=== PATIENT | male | born 1995 | race Caucasian/White ===

== ENCOUNTER 2018-06-26 22:47 | Observation (INO) | payer OTHER ==
[2018-06-26] MEDS ORDERED: HYDROMORPHONE HCL INJ/PF 2 MG/ML AMPULE IV ONE ×2 (23:12→23:56)
[2018-06-26] MEDS ORDERED: NORMAL SALINE 1000 ML 1,000 ML IV ONE (23:12)
[2018-06-26] MEDS ORDERED: ONDANSETRON HCL INJ/PF 4 MG/2 ML SDV IV ONE (23:12)
--- NOTE | 2018-06-26 23:17 | ER Document Report ---
ED General - General Chief Complaint: Abdominal Pain Stated Complaint: ABDOMINAL PAIN Time Seen by Provider: 06/26/18 23:05 Notes: Patient is a 22-year-old male presents with complaint of abdominal pain. Patient says it started approximately now one half ago. He had eaten several hours before. He said vomiting. Pain is in the central portion of his abdomen just above his umbilicus. He says this is where most pain is but it does radiate throughout his abdomen. He did have a umbilical hernia repair approximately 2-3 months ago. This was performed at [facility]. No blood in his emesis. No blood in the stool. No other complaints at this time. TRAVEL OUTSIDE OF THE [place] IN LAST 30 DAYS: No - Related Data Allergies/Adverse Reactions: No Known Allergies Allergy (Unverified 06/26/18 22:54) Past Medical History - Social History Smoking Status: Never Smoker Frequency of alcohol use: Occasional Drug Abuse: None Family History: Reviewed & Not Pertinent Patient has suicidal ideation: No Patient has homicidal ideation: No Renal/ Medical History: Denies: Hx Peritoneal Dialysis Past Surgical History: Reports: Hx Abdominal Surgery - hernia repair Review of Systems - Review of Systems Notes: My Normal Review Basic REVIEW OF SYSTEMS: CONSTITUTIONAL : Denies fever, chills, or sweats. Denies recent illness. EENT: Denies eye, ear, throat, or mouth pain or symptoms. Denies nasal or sinus congestion. RESPIRATORY: Denies cough, cold, or chest congestion. Denies shortness of breath, difficulty breathing, or wheezing. GASTROINTESTINAL: Severe abdominal pain MUSCULOSKELETAL: Denies neck or back pain or joint pain or swelling. SKIN: Denies rash or skin lesions. NEUROLOGICAL: Denies altered mental status or loss of consciousness. Denies headache. Denies weakness or paralysis or loss of use of either side. Denies problems with gait or speech. Denies sensory or motor loss. ALL OTHER SYSTEMS REVIEWED AND NEGATIVE. Physical Exam - Vital signs Vitals: Temp Pulse Resp BP Pulse Ox 97.6 F 71 18 141/90 H 100 06/26/18 22:51 06/26/18 22:51 06/26/18 22:51 06/26/18 22:51 06/26/18 22:51 - Notes Notes: General Appearance: Well nourished, alert, cooperative, no acute distress, severe obvious discomfort. Vitals: reviewed, See vital signs table. Eyes: PERRL, EOMI, Conjuctiva clear Neck: Supple, no neck tenderness, No thyromegaly Lungs: No wheezing, No rales, No rhonci, No accessory muscle use, good air exchange bilaterally. Heart: Normal rate, Regular rythm, No murmur, no rub Abdomen: Normal BS, soft, No rigidity, patient has pain throughout the abdomen to palpation. It is worse over the correct ventral portion of the abdomen. I cannot feel a hernia on deep palpation of the abdomen. Patient does have a significant amount of guarding. Extremities: strength 5/5 in all extremities, good pulses in all extremities, no swelling or tenderness in the extremities, no edema. Skin: warm, dry, appropriate color, no rash Neuro: speech clear, oriented x 3, normal affect, responds appropriately to questions. Course - Re-evaluation Re-evalutation: 06/26/18 23:17 I am concerned the patient just recently had a hernia repair surgery. Concerned that he could have recurrence of the hernia with incarceration however I cannot confirm this on my exam as I cannot feel hernia currently. I will have the patient go directly to CT scan. Of ordered a CT scan with IV contrast. I have ordered pain medicine this patient has a lot of pain. 06/26/18 23:59 On reevaluation patient is still having a lot of pain despite the pain medicine. CT scan was done immediately and did not show any acute findings except for appendicolith but they did not see evidence of appendicitis otherwise. Patient has a white count of 20,000. He still in a lot of pain. Of ordered more pain medicine. I will call the surgeon to have him come evaluate the patient. 06/27/18 00:41 Dr. Casas, general surgeon, did evaluate the patient. He has evaluated the patient, reviewed labs, and reviewed his CT scan. He says it is unclear exactly what is causing patient's all pain at this time. He says he does not feel that he needs to go to the OR acutely. He recommends patient be admitted for observation and they can do repeat serial exams. He recommends patient be admitted to medicine and they would follow along and monitor the patient's abdomen as well. I will contact the hospitalist to see if they are in agreement with admitting the patient. Dictation of this chart was performed using voice recognition software; therefore, there may be some unintended grammatical errors. 06/27/18 01:12 I spoke with the hospitalist, Dr. Reyes, who feels that the patient has no medical problems and therefore there is no reason for this patient to be in the medical service. I did call back Dr. Casas who agrees to admit the patient. - Vital Signs Vital signs: Temp Pulse Resp BP Pulse Ox 97.6 F 71 18 141/90 H 100 06/26/18 22:51 06/26/18 22:51 06/26/18 22:51 06/26/18 22:51 06/26/18 22:51 - Laboratory Result Diagrams: 06/26/18 23:00 06/26/18 23:00 Laboratory results interpreted by me: 06/26/18 06/26/18 06/26/18 23:00 23:00 23:55 WBC 20.6 H Abs Neuts (Manual) 15.7 H Glucose 128 H Calcium 10.4 H Albumin 5.2 H Urine Ketones TRACE H Discharge - Discharge Clinical Impression: Abdominal pain Qualifiers: Abdominal location: unspecified location Qualified Code(s): R10.9 - Unspecified abdominal pain Leukocytosis Qualifiers: Leukocytosis type: unspecified Qualified Code(s): D72.829 - Elevated white blood cell count, unspecified Vomiting Qualifiers: Vomiting type: unspecified Vomiting Intractability: unspecified Nausea presence: with nausea Qualified Code(s): R11.2 - Nausea with vomiting, unspecified Condition: Stable Disposition: ADMITTED OBSERVATION Admitting Provider: Surgicalist Unit Admitted: Surgical Floor
[2018-06-26 23:26] LABS: HEMATOCRIT 46.1 % (37.9-51.0); MEAN CORPUSCULAR HEMOGLOBIN 30.3 pg (27.0-33.4); MEAN CORPUSCULAR HGB CONC 34.6 g/dL (32.0-36.0); MEAN CORPUSCULAR VOLUME 88 fl (80-97); PLATELET COUNT 346 10^3/uL (150-450); RED BLOOD COUNT 5.27 10^6/uL (4.35-5.55); RED CELL DISTRIBUTION WIDTH 12.8 % (11.5-14.0); WHITE BLOOD COUNT 20.6 10^3/uL (4.0-10.5)
[2018-06-26 23:36] LABS: ALANINE AMINOTRANSFERASE 46 U/L (21-72); ALBUMIN 5.2 g/dL (3.5-5.0); ALKALINE PHOSPHATASE 83 U/L (38-126); ANION GAP 13 (5-19); ASPARTATE AMINO TRANSFERASE 25 U/L (17-59); BILIRUBIN,DIRECT 0.2 mg/dL (0.0-0.4); BILIRUBIN,TOTAL 0.4 mg/dL (0.2-1.3); BLOOD UREA NITROGEN 19 mg/dL (7-20); CALCIUM 10.4 mg/dL (8.4-10.2); CARBON DIOXIDE 29 mmol/L (22-30); CHLORIDE 99 mmol/L (98-107); GLUCOSE 128 mg/dL (75-110); LIPASE 47.8 U/L (23-300); POTASSIUM 4.5 mmol/L (3.6-5.0); SODIUM 140.8 mmol/L (137-145); TOTAL PROTEIN 8.1 g/dL (6.3-8.2)
[2018-06-26 23:39] LABS: ABSOLUTE LYMPHOCYTES# (MANUAL) 3.1 10^3/uL (0.5-4.7); ABSOLUTE MONOCYTES # (MANUAL) 1.4 10^3/uL (0.1-1.4); ABSOLUTE NEUTROPHILS# (MANUAL) 15.7 10^3/uL (1.7-8.2); BASOPHILS % (MANUAL) 0 % (0-2); EOSINOPHILS % (MANUAL) 2 % (0-6); LYMPHOCYTES % (MANUAL) 15 % (13-45); MONOCYTES % (MANUAL) 7 % (3-13); SEGMENTED NEUTROPHILS % (MAN) 76 % (42-78); TOTAL CELLS COUNTED 100
[2018-06-26 23:42] LABS: PLATELET COMMENT ADEQUATE; PLATELET LARGE PRESENT; SCHISTOCYTES SLIGHT
--- NOTE | 2018-06-26 23:51 | RADIOLOGY REPORT (SQ) ---
EXAM DESCRIPTION: CT ABDOMEN PELVIS WITH IV CONTRAST COMPLETED DATE/TME: 06/26/2018 23:12 CLINICAL HISTORY: 22 years, Male, abdominal pain COMPARISON: None. TECHNIQUE: 431 Images stored on PACS. All CT scanners at this facility use dose modulation, iterative reconstruction, and/or weight based dosing when appropriate to reduce radiation dose to as low as reasonably achievable (ALARA). [facility]: Dose Right [facility]: CareDose [facility]: Dose Right [facility]: Teradose 4D [facility]: [employer] LIMITATIONS: None. FINDINGS: Limited evaluation of the lung bases is unremarkable. Osseous structures are grossly intact. The liver, spleen, adrenal glands, pancreas, kidneys are unremarkable. The gallbladder is present. No gross evidence for bowel obstruction. Fat-containing periumbilical hernia. Appendicoliths are noted, however the appendix is otherwise unremarkable. No free air or free fluid. IMPRESSION: Negative for acute intra-abdominal/pelvic process. TECHNICAL DOCUMENTATION: Quality ID # 436: Final reports with documentation of one or more dose reduction techniques (e.g., Automated exposure control, adjustment of the mA and/or kV according to patient size, use of iterative reconstruction technique) copyright 2010 [employer]- All Rights Reserved
[2018-06-27 00:03] LABS: APPEARANCE,URINE CLEAR; BILIRUBIN,URINE NEGATIVE (NEGATIVE); COLOR,URINE YELLOW; GLUCOSE, URINE NEGATIVE (NEGATIVE); KETONES,URINE TRACE mg/dL (NEGATIVE); LEUKOCYTE ESTERASE,URINE NEGATIVE (NEGATIVE); NITRITE,URINE NEGATIVE (NEGATIVE); PROTEIN,URINE NEGATIVE (NEGATIVE); URINE SPECIFIC GRAVITY 1.046; UROBILINOGEN,URINE NEGATIVE mg/dL (<2.0)
[2018-06-27] MEDS ORDERED: NORMAL SALINE 1000 ML 1,000 ML IV ONE ×2 (01:13)
--- NOTE | 2018-06-27 01:54 | PDOC H&P ---
History of Present Illness Admission Date/PCP: GERHARD LEON MD Patient complains of: abdominal pains History of Present Illness: BASILIA OLIVA is a 22 year old male with history of PTSD, suddenly c/o severe epigastric jason associated with prolonged vomiting( 30 minutes) at 9 pm 06/26/18. He did complain also of chilly sensation. Had umbilical hernia repair done at [facility] in . His WBC is 20.6. Past Medical History Psychiatric Medical History: Reports: Other - PTSD and nightmares Past Surgical History Past Surgical History: Reports: Other - umbilical hernia repair. Moles removed from left arm and underneath chin Social History Smoking Status: Current Some Day Smoker - uses "Vape" Frequency of Alcohol Use: Social Family History Family History: Reviewed & Not Pertinent Parental Family History Reviewed: Yes - Cancer Children Family History Reviewed: No Sibling(s) Family History Reviewed.: No Medication/Allergy Home Medications: Citalopram Hydrobromide [Celexa 20 mg Tablet] 20 mg PO DAILY 06/26/18 Prazosin HCl [Minipress] 2 mg PO QHS 06/26/18 Allergies/Adverse Reactions: No Known Allergies Allergy (Unverified 06/26/18 22:54) Review of Systems Constitutional: PRESENT: chills - chilly sensation Eyes: PRESENT: other - no visual/hearing changes Cardiovascular: PRESENT: other - no chest pains/cough Gastrointestinal: PRESENT: abdominal pain, vomiting Psychiatric: PRESENT: anxiety Hematologic/Lymphatic: PRESENT: other - no easy bruising Physical Exam Vital Signs: Temp Pulse Resp BP Pulse Ox 97.6 F 71 18 141/90 H 100 06/26/18 22:51 06/26/18 22:51 06/26/18 22:51 06/26/18 22:51 06/26/18 22:51 Intake & Output 06/25/18 06/26/18 06/27/18 06:59 06:59 06:59 Intake Total 1000 Balance 1000 Weight 92.5 kg General appearance: PRESENT: severe distress Head exam: PRESENT: atraumatic Eye exam: PRESENT: conjunctiva pink Mouth exam: PRESENT: moist Neck exam: PRESENT: full ROM Respiratory exam: PRESENT: clear to auscultation gilda Cardiovascular exam: PRESENT: RRR Pulses: PRESENT: normal radial pulses Vascular exam: PRESENT: normal capillary refill GI/Abdominal exam: PRESENT: tenderness - epigastric area rest of abdomen non tender Rectal exam: PRESENT: deferred Extremities exam: PRESENT: full ROM Musculoskeletal exam: PRESENT: ambulatory Neurological exam: PRESENT: alert, oriented to person, oriented to place, oriented to time, oriented to situation Psychiatric exam: PRESENT: anxious Skin exam: PRESENT: normal color, warm Results Laboratory Results: 06/26/18 23:00 06/26/18 23:00 06/26/18 06/26/18 06/26/18 23:00 23:00 23:50 WBC 20.6 H RBC 5.27 Hgb 16.0 Hct 46.1 MCV 88 MCH 30.3 MCHC 34.6 RDW 12.8 Plt Count 346 Seg Neutrophils % Not Reportable Lymphocytes % Not Reportable Monocytes % Not Reportable Eosinophils % Not Reportable Basophils % Not Reportable Absolute Neutrophils Not Reportable Absolute Lymphocytes Not Reportable Absolute Monocytes Not Reportable Absolute Eosinophils Not Reportable Absolute Basophils Not Reportable Sodium 140.8 Potassium 4.5 Chloride 99 Carbon Dioxide 29 Anion Gap 13 BUN 19 Creatinine 0.91 Est GFR ( Amer) > 60 Est GFR (Non-Af Amer) > 60 Glucose 128 H Lactic Acid 1.9 Calcium 10.4 H Total Bilirubin 0.4 AST 25 ALT 46 Alkaline Phosphatase 83 Total Protein 8.1 Albumin 5.2 H Lipase 47.8 Urine Color Urine Appearance Urine pH Ur Specific Stedman Urine Protein Urine Glucose (UA) Urine Ketones Urine Blood Urine Nitrite Ur Leukocyte Esterase Urine WBC (Auto) Urine RBC (Auto) 06/26/18 23:55 WBC RBC Hgb Hct MCV MCH MCHC RDW Plt Count Seg Neutrophils % Lymphocytes % Monocytes % Eosinophils % Basophils % Absolute Neutrophils Absolute Lymphocytes Absolute Monocytes Absolute Eosinophils Absolute Basophils Sodium Potassium Chloride Carbon Dioxide Anion Gap BUN Creatinine Est GFR ( Amer) Est GFR (Non-Af Amer) Glucose Lactic Acid Calcium Total Bilirubin AST ALT Alkaline Phosphatase Total Protein Albumin Lipase Urine Color YELLOW Urine Appearance CLEAR Urine pH 6.0 Ur Specific Stedman 1.046 Urine Protein NEGATIVE Urine Glucose (UA) NEGATIVE Urine Ketones TRACE H Urine Blood NEGATIVE Urine Nitrite NEGATIVE Ur Leukocyte Esterase NEGATIVE Urine WBC (Auto) 0 Urine RBC (Auto) 0 Impressions: Abdomen/Pelvis CT 06/26/18 23:12 IMPRESSION: Negative for acute intra-abdominal/pelvic process. TECHNICAL DOCUMENTATION: Quality ID # 436: Final reports with documentation of one or more dose reduction techniques (e.g., Automated exposure control, adjustment of the mA and/or kV according to patient size, use of iterative reconstruction technique) copyright 2011 [employer]- All Rights Reserved Assessment & Plan - Diagnosis (1) Abdominal pain Qualifiers: Abdominal location: unspecified location Qualified Code(s): R10.9 - Un specified abdominal pain Is this a current diagnosis for this admission?: Yes (2) Leukocytosis Qualifiers: Leukocytosis type: unspecified Qualified Code(s): D72.829 - Elevated white blood cell count, unspecified Is this a current diagnosis for this admission?: Yes (3) Vomiting Qualifiers: Vomiting type: unspecified Vomiting Intractability: unspecified Nausea presence: with nausea Qualified Code(s): R11.2 - Nausea with vomiting, unspecified - Time Time Spent: 30 to 50 Minutes - Inpatient Certification Medical Necessity: Need Close Monitoring Due to Risk of Patient Decompensation, Need For IV Fluids, Need for Pain Control, Risk of Complication if Not Cared For in Hospital - Plan Summary Plan Summary: Hold off antibiotics. Obtain blood c/s Re-evaluate in am with repeat CBC with diff Hydrate Add toradol for pain
[2018-06-27] MEDS ORDERED: HYDROMORPHONE HCL INJ/PF 2 MG/ML AMPULE IV PRN ×2 (02:01→10:39)
[2018-06-27 03:54] LABS: URINE AMPHETAMINES SCREEN NEGATIVE; URINE BARBITURATES SCREEN NEGATIVE; URINE BENZODIAZEPINES SCREEN NEGATIVE; URINE COCAINE SCREEN UNCONFIRMED POSITIVE; URINE MARIJUANA (THC) SCREEN NEGATIVE; URINE METHADONE SCREEN NEGATIVE; URINE PHENCYCLIDINE SCREEN NEGATIVE
--- NOTE | 2018-06-27 03:55 | RADIOLOGY REPORT (SQ) ---
EXAM DESCRIPTION: US ABDOMEN COMPLETED DATE/TME: 06/27/2018 00:00 CLINICAL HISTORY: 22 years, Male, gall bladder/pancreas path COMPARISON: CT from today's date TECHNIQUE: Complete transabdominal ultrasound LIMITATIONS: None. FINDINGS: The liver is homogenous in echotexture without focal lesion. No gallstones or gallbladder wall thickening. CBD measures 2.3 mm. Visualized pancreas is unremarkable. Visualized abdominal aorta and inferior vena cava are unremarkable. Right kidney maximal diameter 10 cm, the left 11 cm. No renal calculus, mass, or hydronephrosis. The spleen is unremarkable. No ascites. IMPRESSION: Unremarkable complete transabdominal ultrasound copyright 2010 [employer]- All Rights Reserved
[2018-06-27 05:43] LABS: HEMATOCRIT 44.5 % (37.9-51.0); HEMOGLOBIN 15.3 g/dL (13.5-17.0); MEAN CORPUSCULAR HEMOGLOBIN 30.4 pg (27.0-33.4); MEAN CORPUSCULAR HGB CONC 34.3 g/dL (32.0-36.0); MEAN CORPUSCULAR VOLUME 89 fl (80-97); PLATELET COUNT 324 10^3/uL (150-450); RED BLOOD COUNT 5.01 10^6/uL (4.35-5.55); RED CELL DISTRIBUTION WIDTH 12.9 % (11.5-14.0); WHITE BLOOD COUNT 23.3 10^3/uL (4.0-10.5)
[2018-06-27] MEDS: KETOROLAC TROMETHAMINE INJ/PF 30 MG/1 ML SDV IV SCH ×2 (06:11→12:10)
[2018-06-27 06:20] LABS: ALANINE AMINOTRANSFERASE 40 U/L (21-72); ALBUMIN 4.8 g/dL (3.5-5.0); ALKALINE PHOSPHATASE 76 U/L (38-126); ANION GAP 12 (5-19); ASPARTATE AMINO TRANSFERASE 21 U/L (17-59); BILIRUBIN,DIRECT 0.3 mg/dL (0.0-0.4); BILIRUBIN,TOTAL 0.8 mg/dL (0.2-1.3); BLOOD UREA NITROGEN 16 mg/dL (7-20); CALCIUM 9.7 mg/dL (8.4-10.2); CARBON DIOXIDE 28 mmol/L (22-30); CHLORIDE 100 mmol/L (98-107); GLUCOSE 132 mg/dL (75-110); LIPASE 37.1 U/L (23-300); POTASSIUM 4.5 mmol/L (3.6-5.0); SODIUM 139.9 mmol/L (137-145); TOTAL PROTEIN 7.5 g/dL (6.3-8.2)
[2018-06-27] MEDS: NORMAL SALINE 1000 ML 1,000 ML IV SCH ×2 (06:23→12:10)
[2018-06-27 06:31] LABS: ABSOLUTE LYMPHOCYTES# (MANUAL) 0.7 10^3/uL (0.5-4.7); ABSOLUTE MONOCYTES # (MANUAL) 0.7 10^3/uL (0.1-1.4); ABSOLUTE NEUTROPHILS# (MANUAL) 21.9 10^3/uL (1.7-8.2); BASOPHILS % (MANUAL) 0 % (0-2); EOSINOPHILS % (MANUAL) 0 % (0-6); LYMPHOCYTES % (MANUAL) 3 % (13-45); MONOCYTES % (MANUAL) 3 % (3-13); SEGMENTED NEUTROPHILS % (MAN) 94 % (42-78); TOTAL CELLS COUNTED 100
[2018-06-27 06:32] LABS: PLATELET COMMENT ADEQUATE; PLATELET LARGE PRESENT; SCHISTOCYTES SLIGHT; TOXIC GRANULATION SLIGHT
[2018-06-27] MEDS ORDERED: PIPERACILLIN/TAZOBACTAM 3.375 GM VIAL IV PRN (06:47)
[2018-06-27] MEDS ORDERED: HYDROMORPHONE HCL INJ/PF 2 MG/ML AMPULE IV ONE (07:00)
[2018-06-27] MEDS ORDERED: PIPERACILLIN SODIUM/TAZOBACTAM 3.375 GM in NORMAL SALINE 100 ML IV ONE (07:00)
[2018-06-27] MEDS ORDERED: BUPIVACAINE HCL 0.25 % INJ/PF (2.5 MG/1 ML) 30 ML VIAL ONE (07:27)
[2018-06-27] MEDS ORDERED: FENTANYL CITRATE INJ/PF 250 MCG/5 ML AMPULE ONE (07:36)
[2018-06-27] MEDS ORDERED: MIDAZOLAM 2 MG/2 ML INJ ONE (07:36)
[2018-06-27] MEDS ORDERED: DEXMEDETOMIDINE INJ 80 MCG/20 ML VIAL IV ONE (07:36)
[2018-06-27] MEDS ORDERED: ACETAMINOPHEN 1,000 MG/100 ML RTUPB IV ONE (07:37)
[2018-06-27] MEDS ORDERED: PROPOFOL INJ 200 MG/20 ML VIAL IV ONE (07:37)
[2018-06-27] MEDS ORDERED: SUGAMMADEX SODIUM 200 MG/2 ML SDV IV ONE (08:49)
[2018-06-27] MEDS ORDERED: ONDANSETRON HCL INJ/PF 4 MG/2 ML SDV IV PRN (09:04)
[2018-06-27] MEDS ORDERED: MORPHINE SULFATE 10 MG/ML INJ IV PRN (09:04)
[2018-06-27] MEDS ORDERED: MEPERIDINE HCL/PF INJ 25 MG/1 ML DISP.SYRIN IV PRN (09:04)
[2018-06-27] MEDS ORDERED: PROMETHAZINE HCL INJ 25 MG/1 ML VIAL IV PRN ×2 (09:04)
[2018-06-27] MEDS ORDERED: FENTANYL CITRATE INJ/PF 100 MCG/2 ML AMPUL IV PRN ×3 (09:04)
[2018-06-27] MEDS ORDERED: DIPHENHYDRAMINE HCL 50 MG/ML VIAL IV PRN (09:04)
[2018-06-27] MEDS ORDERED: SUCCINYLCHOLINE CHLORIDE INJ 200 MG/10 ML VIAL ONE (10:19)
[2018-06-27] MEDS ORDERED: ONDANSETRON HCL INJ/PF 4 MG/2 ML SDV ONE (10:19)
[2018-06-27] MEDS ORDERED: LIDOCAINE 2% INJ-PF (20 MG/ML) 2 ML AMPUL ONE (10:19)
[2018-06-27] MEDS ORDERED: ROCURONIUM BROMIDE INJ 50 MG/5 ML VIAL IV ONE (10:19)
[2018-06-27] MEDS ORDERED: DEXAMETHASONE SOD PHOSPHATE INJ 4 MG/1 ML VIAL ONE (10:19)
[2018-06-27] MEDS ORDERED: METOCLOPRAMIDE HCL INJ/PF 10 MG/2 ML SDV ONE (10:19)
[2018-06-27] MEDS ORDERED: KETOROLAC TROMETHAMINE 60 MG/2 ML SDV ONE (10:19)
[2018-06-27] MEDS ORDERED: NORMAL SALINE 1000 ML 1,000 ML IV PRN (10:39)
[2018-06-27] MEDS ORDERED: OXYCODONE-ACETAMINOPHEN 5-325 MG TABLET PO PRN (10:39)
[2018-06-27] MEDS: PIPERACILLIN SODIUM/TAZOBACTAM 3.375 GM in NORMAL SALINE 100 ML IV SCH ×2 (11:26→17:03)
--- NOTE | 2018-06-27 11:32 | OPERATIVE REPORT E ---
Operative Report NAME: BASILIA OLIVA : 1995 AGE: 22Y DATE OF SURGERY: 06/27/2018 ROOM: 212 PREOPERATIVE DIAGNOSIS: ACUTE APPENDICITIS. POSTOPERATIVE DIAGNOSIS: ACUTE APPENDICITIS. OPERATION: Laparoscopic appendectomy. SURGEON: PATRICK MCELROY M.D. ANESTHESIA: General. INDICATION: This is a 32-ar-old male complaining of severe epigastric pains at 9 p.m. last night with vomiting. Patient went to ED and CAT scan of the abdomen showed appendicles but no evidence of inflammation. However, his white count was up to 20,000. Patient was observed in the ED and this morning his pain was localized in the right lower quadrant where he was also very tender with rebound. He was then taken to the OR for laparoscopic appendectomy. PROCEDURE: After adequate IV general anesthesia, the patient was placed in the supine position. The abdomen prepped and draped in the usual sterile fashion. Appropriate timeout was called. Next, an infraumbilical incision through the old incision site was made and carried through the fascia. The fascia was then grasped with 2 Eugenia clamps on each side and divided in the middle. Two sutures of 0-Vicryl were placed on each side of the Eugenia clamps. The Eugenia clamps released. Digital dissection and palpation of the fascia and peritoneal cavity was done. No evidence of adhesions noted to the peritoneal area. Next, a Alvin trocar was then inserted to the abdomen through the fascia and CO2 insufflated to a pressure of 15 mmHg. Two other trocars were placed, a 5 mm in the suprapubic and a 12 mm in the left lower quadrant under direct vision. The appendix was then identified and noted to be adherent to the lateral wall. The tip of the appendix was subsequently grasped and lifted up and adhesions lysed with use of Harmonic james. Mesoappendix was then cauterized and divided with the use of Harmonic james. The base of the appendix was dissected close to the cecum with the use of the Harmonic james. The appendix noted to be just mildly inflamed and dilated. The base of the appendix was subsequently stapled with a 45 mm blue load. The appendix was then placed in an Endo bag and pulled out of the umbilical port. Roque trocar was put back and the appendiceal stump was inspected and noted to be with no active bleeding. It was gently irrigated and again showed good hemostasis. No other obvious abnormality in the abdominal cavity on inspection. All of the trocars were then removed and CO2 allowed to come out of the trocar sites. The infraumbilical fascia was then closed with a [id number] suture using 0-Vicryl and the 2 stay sutures tied together over the fscia. The fascia was anesthetized with 0.5% Marcaine with epinephrine and all of the skin incisions. The skin incisions were then closed with running subcuticular 4-0 Vicryl undyed. Steri-Strips were then placed over the incision sites. Needle, instrument, and sponge count were all correct. Estimated blood loss was about 5 mL. The patient then brought to recovery room in satisfactory condition, extubated. DICTATING PHYSICIAN: PATRICK MCELROY M.D. [id number] PHY#: [id number] ID: [id number] JOB#: [id number] ACCT: [id number] cc:PATRICK MCELROY M.D. > MTDD
[2018-06-27] MEDS ORDERED: KETOROLAC TROMETHAMINE INJ/PF 30 MG/1 ML SDV IV SCH (14:00)
[2018-06-27 17:44] VITALS: BP 136/73
--- NOTE | 2018-06-28 07:29 | EKG REPORT ---
SEVERITY:- NORMAL ECG - SINUS RHYTHM : Confirmed by: Valarie Mccartney MD 28-Jun-2018 07:29:05
--- NOTE | 2018-06-28 12:33 | DISCHARGE SUMMARY E ---
Discharge Summary NAME: BASILIA OLIVA : 1995 AGE: 22Y ADMITTED: 06/27/2018 DISCHARGED: 06/27/2018 PROCEDURE DONE: Laparoscopic appendectomy. FINAL DIAGNOSIS: Acute appendicitis. HOSPITAL COURSE: This is a 22-year-old male who complained of epigastric pains around 9 p.m. of 06/26/2018. He then went to the ED where a CAT scan of the abdomen revealed appendicolith, but no inflammation and no obvious acute changes. His white count is elevated to 20,000. He was then admitted on 06/27/2018 for observation. On the morning of 06/27/2018, his pains localized in the right lower quadrant with tenderness. He was then taken to the OR on the morning of 06/27/2018 for a laparoscopic appendectomy. Laparoscopic appendectomy done by Dr. Casas for acute appendicitis. Postoperatively, the patient did very well, able to tolerate soft diet later the day of surgery. Patient also with minimal pains. He was then discharged improved on 06/27/2018 with the above final diagnosis. Patient given a note to go back to work in 2 weeks and a prescription for Toradol 10 mg p.o. q. 6 hours p.r.n. for pain. The patient to be followed up in the surgical clinic in about 10 days. DICTATING PHYSICIAN: PATRICK CASAS M.D. [id number] PHY#: [id number] ID: [id number] JOB#: [id number] ACCT: [id number] cc:PATRICK CASAS M.D. >
== END 2018-06-27 18:00 | disposition home or self-care (01) ==
LOC: ER 22:47 → EH 06-27 01:39 → 2N 06-27 10:21
PROVIDERS: ADMIT Surgery; ATTEND Surgery
PROC: 0DTJ4ZZ Resection of Appendix, Percutaneous Endoscopic Approach (ICD-10-PCS; principal; 2018-06-27 08:00)
DX: K35.33 Acute appendicitis with perforation, localized peritonitis, and gangrene, with abscess (principal); Z98.890 Other specified postprocedural states; F17.290 Nicotine dependence, other tobacco product, uncomplicated; F43.10 Post-traumatic stress disorder, unspecified; F41.9 Anxiety disorder, unspecified
CPT/HCPCS: 99284; 96361; 96374; 96375; 36415 ×2; 87040; 83605; 83690 ×2; 85025 ×2; 80053 ×2; 81001; 80307; 88304 ×2; 76700; 74177; 93005; 93010; 44970; J2250; J3490 ×4; J1100; J1885 ×2; J3010; J2765; J1170 ×2; J0330; J2405 ×2; J7030 ×2; J2704; J2543; J0131